=== PATIENT | male | born 1960 ===

== ENCOUNTER 2021-01-05 17:12 | Emergency (ER) | payer SELFPAY ==
[~2021-01-05] VITALS: Ht 162.6 cm; Wt 63.5 kg
[2021-01-05 17:21] VITALS: BP 113/70
== END 2021-01-05 23:54 | disposition home or self-care (01) ==
LOC: ER 17:12 → EDBD 17:12 → ER 23:54
DX: S00.03XA Contusion of scalp, initial encounter (principal); Z86.73 Personal history of transient ischemic attack (TIA), and cerebral infarction without residual deficits; W18.39XA Other fall on same level, initial encounter; Y93.01 Activity, walking, marching and hiking; Y92.89 Other specified places as the place of occurrence of the external cause; Y99.8 Other external cause status
CPT/HCPCS: 70450